=== PATIENT | male | born 1990 | race Caucasian/White ===

== ENCOUNTER 2019-08-30 18:22 | Emergency (ER) | payer MEDICAID, SELFPAY ==
[2019-08-30 18:25] VITALS: BP 138/78; PULSE 118; RESP 18; TEMP 39.4; O2SAT 99; BMI 23.7
--- NOTE | 2019-08-30 19:23 | RAD_ITS ---
STUDY: X-RAY CHEST REASON FOR EXAM: Male, 28 years old. COUGH WITH FEVER TECHNIQUE: PA and lateral views of the chest. COMPARISON: January 12, 2012 FINDINGS: The lungs are clear and expanded. There is no demonstrated pleural abnormality. Normal size heart. Normal mediastinum and nikhil. Normal visualized pulmonary arteries. Normal visualized aortic arch and descending thoracic aorta. Normal visualized thoracic spine. Normal visualized ribs, clavicles, and shoulders. There is no demonstrated abnormality of the visualized soft tissue structures of the upper abdomen. RAD/Chest PA and Lateral IMPRESSION: Normal x-ray examination of the chest. Electronically Signed: Lai Campuzano MD at 19:53 EST , Service support ,
--- NOTE | 2019-08-30 19:41 | ED.VIS.URI ---
History of Present Illness Chief Complaint: Cold Sx Informant: Patient, Significant Other Onset: Yesterday Context: Gradual Onset Timing: Continuous Quality: [employer] cough Location: chest Current Severity: Moderate Maximum Severity: Moderate Worsened by: - - n/a Relieved by: - - n/a Associated Symptoms: Nasal Congestion, Shortness of Breath - feels like chest congested, Nonproductive cough, - - malaise, myalgias, sore throat, both ears hurt. Negative for: Headache, Nausea, Vomiting, Diarrhea, Chest Pain, Hemoptysis Narrative: Fevers up to 103 at home. Malaise, myalgias. Healthy otherwise no asthma. Feels a little short of breath. Has not tried anything for his fever yet. No known sick contacts but there is been a high prevalence of influenza in the area recently. Past Medical History - Allergies and Home Meds Allergies/Adverse Reactions: Allergies codeine Allergy (Verified 08/30/19 18:25) Other Primary Care Physician: Doctor,Your [STAFF PHYSICIAN] - 1 Week if not improving Past Medical History: None Lives: Spouse/ Significant Other Smoking Status: Current every day smoker Review of Systems General: Reports: Chills, Fever, Malaise. Denies: Sweats Eyes: Denies: Visual changes - bilaterally, Diplopia ENT: Reports: Bilateral ear pain, Sore throat. Denies: Rhinorrhea Cardiovascular: Denies: Chest pain, Palpitations Respiratory: Reports: Dyspnea, Cough. Denies: Sputum, Dyspnea on exertion Gastrointestinal: Denies: Abdominal pain, Nausea, Vomiting, Diarrhea, Melena, Hematochezia Genitourinary: Denies: Dysuria, Hematuria, Frequency Musculoskeletal: Reports: Myalgias, Neck pain. Denies: Arthralgias, Back pain, Swelling, Extremity Pain Skin: Denies: Rash, Wounds Neurological: Denies: Headache, Weakness, Numbness Physical Exam Vital Signs/Narrative: Vital Signs Temp Pulse Resp BP Pulse Ox 08/30/19 18:25 102.9 F H 118 H 18 138/78 H 99 Inital Vital Signs reviewed: Yes General: Well nourished, Well developed, - - Malaised, but no distress Head: Normocephalic, Atraumatic Eyes: Perrl, EOMI Ears: Normal external canal, TM's clear Nose: Normal Inspection, No Rhinorrhea Mouth/Throat: Normal Inspection, Posterior Oropharyngeal Erythema - Posterior oropharynx erythematous, no asymmetry or exudates Neck: Supple, Nontender, No Lymphadenopathy, No Meningismus Cardiovascular: Regular rate, Regular rhythm, No murmurs Respiratory: No distress, CTA bilaterally, Chest nontender Abdomen: Soft, Nontender, Nondistended, Normal bowel sounds Back: Nontender, Normal Inspection Extremities: Nontender, No edema Skin: Normal color, No rash, No Trauma Neurological: Alert, Oriented x3, Cranial nerves II-XII grossly intact, Normal Strength, Normal Sensation Psychological: Normal affect, Normal Mood Diagnostic/Tx/Re-eval Clinical Impression(s) from Imaging Studies Chest X-Ray 08/30/19 19:23 IMPRESSION: Normal x-ray examination of the chest. Electronically Signed: Lai Campuzano MD at 19:53 EST , Service support , - Medical Decision Making Given multiple possibilities such as strep, influenza, pneumonia, chest x-ray and the above were all tested for. Positive for influenza. Will be given a prescription for Tamiflu at his request, we discussed the pros and cons of this medication. Supportive care advised. He was given an injection of Toradol and a dose of Tylenol here. He is oxygenating well. ED Disposition - Plan for ED Patient: Disposition: Home or Assisted Living Diagnosis: Influenza B Instructions: INFLUENZA (Adult) Prescriptions: Oseltamivir Phosphate [Tamiflu] 75 mg PO BID #10 cap Transmission Status: Received by [facility] [place] Referrals: Doctor,Your [STAFF PHYSICIAN] - 1 Week if not improving
[2019-08-30] MEDS: Ketorolac 60 MG/2 ML Vial IM (19:48)
[2019-08-30 19:55] VITALS: RESP 20
[2019-08-30] MEDS: Acetaminophen 500 MG Tablet 1000 MG PO (20:58)
[2019-08-30] MEDS: Oseltamivir Phosphate 75 MG Capsule PO (20:58)
== END 2019-08-30 21:01 | disposition home or self-care (01) ==
PROVIDERS: Emergency Provider Emergency Medicine
DX: J10.1 Influenza due to other identified influenza virus with other respiratory manifestations (principal); F17.200 Nicotine dependence, unspecified, uncomplicated
CPT/HCPCS: 71046; 87804; 87880; 96372; 99283

== ENCOUNTER 2020-08-04 09:37 | Emergency (ER) | payer MEDICAID, SELFPAY ==
[2020-08-04 09:39] VITALS: BP 140/80; PULSE 94; RESP 17; TEMP 36.5; O2SAT 100; BMI 25.5
--- NOTE | 2020-08-04 10:02 | EKG12_ITS ---
Test Reason : CP Blood Pressure : / mmHG Vent. Rate : 087 BPM Atrial Rate : 087 BPM P-R Int : 124 ms QRS Dur : 096 ms QT Int : 358 ms P-R-T Axes : 060 079 067 degrees QTc Int : 430 ms Normal sinus rhythm Consider Acute pericarditis Abnormal ECG Confirmed by NATALIYA REARDON, JOELLEN ([id number]), retinal angiographer ALBIN CARDOSO ([id number]) on 08/07/2020 10:26:27 AM Referred By: ANA Confirmed By:JOELLEN AN MD
--- NOTE | 2020-08-04 10:04 | ED.DCSUM_ITS ---
History of Present Illness Chief Complaint: Chest Pain Informant: Patient Onset: Days Timing: Continuous Quality: Aching, Sharp Worsened By: Exertion, Breathing Relieved By: Rest Associated Symptoms: Negative for: Nausea, Vomiting, Dyspnea, Cough, Fever Narrative: Patient is a 29-year-old male presenting from home for 3 days of chest pain. Chaparro raymond states the pain is diffuse and aching in nature. When he takes a deep breath or lays back it becomes sharp. The pain radiates to his neck and ears. He denies associated fever, congestion or other flu/cold symptoms. No associated cough. He has no sick contacts. Denies any swelling of his extremities. No history of DVT or PE. Positive tobacco use. Has not tried anything for pain at home including Tylenol or ibuprofen. Past Medical History - Allergies and Home Meds Allergies/Adverse Reactions: Allergies codeine Allergy (Verified 08/04/20 09:38) Other Primary Care Physician: Care Physician,No Primary [Primary Care Provider] - Past Medical History: None Surgical History: noncontributory Smoking Status: Current every day smoker Review of Systems General: Denies: Chills, Fever, Sweats Eyes: Denies: Visual changes - bilaterally, Diplopia ENT: Denies: Rhinorrhea, Sore throat Cardiovascular: Reports: Chest pain. Denies: Palpitations, Heart racing Respiratory: Reports: Dyspnea on exertion. Denies: Dyspnea, Cough Gastrointestinal: Denies: Abdominal pain, Nausea, Vomiting, Diarrhea Genitourinary: Denies: Dysuria, Hematuria, Frequency Musculoskeletal: Denies: Back pain, Swelling, Extremity Pain Skin: Denies: Rash, Wounds Neurological: Denies: Headache, Weakness, Numbness Physical Exam Vital Signs/Narrative: Vital Signs Temp Pulse Resp BP Pulse Ox 08/04/20 09:39 97.7 F L 94 17 140/80 H 100 Inital Vital Signs reviewed: Yes General: Well nourished, Well developed, No Acute Distress Head: Normocephalic, Atraumatic Eyes: Perrl, EOMI ENT: Moist mucous membranes, No rhinorrhea Neck: Supple, Nontender Cardiovascular: Regular rate, Regular rhythm, No murmurs, - - 2+ radial and pedal pulses Respiratory: No distress, CTA bilaterally, Chest nontender. Negative for: Wheezing, Diminished, Decreased Air Movement Abdomen: Soft, Nontender, Nondistended, Normal bowel sounds Back: Nontender, Normal Inspection Extremities: Nontender, No edema. Negative for: Calf Tenderness Skin: Normal color, No rash Neurological: Alert, Oriented x3, Cranial nerves II-XII grossly intact, Normal Strength, Normal Sensation Psychological: Normal affect, Normal Mood Diagnostic/Tx/Re-eval Chest X-Ray - ED: 1 View, Read by ED Physician, Read by Radiologist, No Acute Disease Laboratory Data 08/04/20 08/04/20 10:02 10:02 WBC 10.2 RBC 4.92 Hgb 14.8 Hct 44.5 MCV 90.4 MCH 30.1 MCHC 33.3 RDW Std Deviation 43.1 RDW Coeff of Joby 13.0 Plt Count 353 MPV 9.2 Immature Gran % (Auto) 0.200 Neut % (Auto) 57.5 Lymph % (Auto) 23.5 Coffee % (Auto) 10.6 H Eos % (Auto) 7.7 H Baso % (Auto) 0.5 Absolute Neuts (auto) 5.8 Absolute Lymphs (auto) 2.39 Nucleated RBC % 0 Sodium 138 Potassium 4.0 Chloride 105 Carbon Dioxide 27.0 Anion Gap 6 BUN 10 Creatinine 0.90 Estim Creat Clear Calc 128.99 Est GFR (MDRD) Af Amer 127 Est GFR (MDRD) Non-Af 105 BUN/Creatinine Ratio 11.1 Glucose 99 Calcium 8.9 Troponin I < 0.015 - Rhythm Strip Rhythm Strip: Sinus Rhythm Rate: 87 Ectopy: None - EKG Initial EKG Interpretation: Sinus Rhythm, - - Normal sinus rhythm at a rate of 87 Normal axis Normal intervals Normal ST segments Machine interpretation of acute pericarditis however there is not significant change compared to prior EKG on 08/07/2012 Treatment: Toradol IV, - - Medical Decision Making Presents with pleuritic chest pain for 3 days. Normal vital signs. EKG questionably has pericarditis however there is no significant change compared to prior EKG from 9 years ago. Patient is PERC negative. I have a low suspicion for PE. Patient given IV Toradol for symptom control. On reevaluation he started to have improvement. He notes he does have a physical job and thinks he might of pulled a muscle in his chest. Patient is counseled he did have that. Counseled that he could have a component of pericarditis or pleurisy. I do not suspect myocarditis or pericardial tamponade and treatment will be NSAIDs. Patient is counseled on return precautions including signs of fever, worsening shortness of breath, worsening chest pain or edema. Patient is low risk per heart score and I do not suspect ACS as a cause of his pain. His pain has been going on for 3 days I think a single troponin is sufficient to rule out ACS. Patient is discharged home with 600 mg ibuprofen prescription instructed follow-up with his primary care doctor. Patient verbalizes agreement and understand this plan. Patient discharged home in stable and improved condition. ED Disposition - Plan for ED Patient: Disposition: Home or Assisted Living Diagnosis: Atypical chest pain Instructions: ED Chest Pain, Uncertain Cause Prescriptions: Ibuprofen [Motrin] 600 mg PO Q6H PRN PRN #20 tab PRN Reason: Pain 1-10 Or Fever Transmission Status: Pending to [id number] Referrals: Russel Cardenas MD [NON-STAFF] -
[2020-08-04 10:14] LABS: Absolute Lymphocyte Count 2.39 X10^3/uL (0.83-4.51); Absolute Neutrophil Count 5.8 X10^3/uL (2.0-7.7); Basophil# 0.05 X10^3/uL; Basophil% 0.5 % (0-1); Eosinophil# 0.78 X10^3/uL; Eosinophils% 7.7 % (0-5); Hematocrit 44.5 % (40-54); Hemoglobin 14.8 g/dL (13.0-16.5); Lymphocyte # 2.39 X10^3/ul (4.0); Lymphocyte % 23.5 % (19-41); Mean Corp Hgb Conc 33.3 g/dL (32-36); Mean Corpuscular Hgb 30.1 pg (27.0-32.0); Mean Corpuscular Volume 90.4 fL (80-94); Mean Platelet Vol. 9.2 fl (6.2-12.0); Monocyte# 1.08 X10^3/uL; Monocyte% 10.6 % (0-10); NRBC Flagged by Analyzer 0 % (0-5); Neutrophil # 5.83 X10^3/uL (2.7-7.7); Neutrophil % 57.5 % (47-70); Platelet Count 353 K/mm3 (150-450); RBC Distribution Width SD 43.1 fl (35.1-43.9); Red Blood Count 4.92 M/mm3 (4.6-6.2); White Blood Count 10.2 K/mm3 (4.4-11.0)
[2020-08-04 10:25] LABS: Anion Gap 6 (5-15); BUN 10 mg/dL (7-18); BUN/Creat Ratio 11.1 RATIO (10-20); Calcium,Total 8.9 mg/dL (8.5-10.1); Chloride 105 mmol/L (98-107); EST Glomerular Filtration Rate 105 mL/min (>60); Est Glom Filt Rate - Afr Amer 127 mL/min (>60); Estimated Creatinine Clearance 128.99 ml/min; Glucose 99 mg/dL (74-106); Sodium Level 138 mmol/L (136-145)
--- NOTE | 2020-08-04 10:25 | RAD_ITS ---
STUDY: X-RAY CHEST REASON FOR EXAM: Male, 29 years old. Chest pain x 3 days, difficulty taking in deep breath TECHNIQUE: Single AP portable view of the chest. COMPARISON: 08/30/2019 FINDINGS: The lungs are clear and expanded. There is no demonstrated pleural abnormality. Normal size heart. Normal mediastinum and nikhil. Normal visualized pulmonary arteries. Normal visualized aortic arch and descending thoracic aorta. Normal visualized thoracic spine. Normal visualized ribs, clavicles, and shoulders. There is no demonstrated abnormality of the visualized soft tissue structures of the upper abdomen. RAD/Chest 1 View (Portable) IMPRESSION: Normal x-ray examination of the chest. Electronically Signed: Jose Santos MD at 10:48 EST Tel , Service support ,
[2020-08-04] MEDS: Ketorolac 15 MG/ML Vial IV (10:28)
[2020-08-04 11:05] VITALS: BP 127/82; PULSE 87; RESP 18; O2SAT 97
== END 2020-08-04 11:09 | disposition home or self-care (01) ==
PROVIDERS: Emergency Provider Emergency Medicine
DX: R07.89 Other chest pain (principal); R06.09 Other forms of dyspnea; F17.200 Nicotine dependence, unspecified, uncomplicated
CPT/HCPCS: 71045; 80048; 84484; 85025; 87426; 93005; 96374; 99282; A4216